=== PATIENT | female | born 1960 | race Caucasian/White ===

== ENCOUNTER 2020-01-25 07:54 | Outpatient (REF) | payer OTHER, SELFPAY ==
[2020-01-25 11:16] LABS: Alanine Aminotransferase 20 U/L (0-31); Albumin Level 4.8 g/dL (3.5-5.0); Alkaline Phosphatase 90 U/L (39-117); Anion Gap 12 (12-20); Aspartate Amino Transferase 17 U/L (5-31); Bilirubin Total 0.6 mg/dL (0.0-1.0); Blood Urea Nitrogen 15 mg/dL (9-16); Calcium 9.5 mg/dL (8.4-10.2); Carbon Dioxide 29 mmol/L (22-29); Chloride 103 mmol/L (96-108); Cholesterol 218 mg/dL; Estimated Glomerular Filt Rate > 60; Glucose Fasting 111 mg/dL (60-99); HDL Cholesterol 46 mg/dL; LDL Cholesterol Calculated 123 mg/dl; Potassium 4.4 mmol/l (3.3-5.1); Sodium 140 mmol/L (135-145); Total Protein 7.7 g/dL (6.5-8.0); Triglycerides 246 mg/dL
[2020-01-25 11:21] LABS: Creatinine Urine 38.57 mg/dL; Microalbumin Urine < 5.0 mg/L
[2020-01-25 11:40] LABS: TSH reflex Free T4 2.94 mIU/mL (0.32-4.0)
== END 2020-01-25 07:55 | disposition home or self-care (01) ==
LOC: HO.WFDLDS 07:54
PROVIDERS: PCP Family Medicine; Visit Provider Family Medicine
DX: Z00.00 Encounter for general adult medical examination without abnormal findings (principal); I10 Essential (primary) hypertension
CPT/HCPCS: 36415; 80053; 80061; 82043; 84443

== ENCOUNTER 2020-01-26 08:17 | Outpatient (REF) | payer OTHER, SELFPAY ==
--- NOTE | 2020-01-26 | XR_ITS ---
EXAMINATION: KNEE, BILATERAL CLINICAL INFORMATION: Bilateral knee pain COMPARISON: None TECHNIQUE: AP and lateral views of each knee FINDINGS: Mild tricompartmental osteoarthritis of both knees, right greater than left, with small marginal osteophytes. There may be slight narrowing of the medial compartment of the right knee. No joint effusions. No fracture or focal osseous lesion of either knee. IMPRESSION: Mild tricompartmental osteoarthritis bilaterally, right greater than left. No acute abnormalities.
== END 2020-01-26 08:18 | disposition home or self-care (01) ==
LOC: HO.XRAY 08:17
PROVIDERS: PCP Family Medicine; Visit Provider Family Medicine
DX: M25.562 Pain in left knee (principal); M25.561 Pain in right knee
CPT/HCPCS: 73560

== ENCOUNTER 2020-03-10 08:40 | Outpatient (REF) | payer OTHER, SELFPAY ==
--- NOTE | 2020-03-10 08:49 | XR_ITS ---
EXAMINATION: XR KNEE AP STANDING CLINICAL INFORMATION: Bilateral primary osteoarthritis of the knee. COMPARISON: Bilateral knee radiographs dated 01/26/2020. TECHNIQUE: AP bilateral standing view of the knees was obtained. FINDINGS: Mild to moderate femoral-tibial degenerative joint changes are seen with joint space narrowing more pronounced medially. There is no acute fracture. The soft tissues are unremarkable. XR/XR knee standing BI IMPRESSION: Mild to moderate femoral-tibial degenerative joint changes more pronounced medially most consistent with osteoarthritis. The degree of degenerative changes similar bilaterally.
== END 2020-03-10 08:41 | disposition home or self-care (01) ==
LOC: HO.HOSX 08:40
PROVIDERS: Visit Provider Orthopaedic Surgery
DX: M17.0 Bilateral primary osteoarthritis of knee (principal); M54.16 Radiculopathy, lumbar region
CPT/HCPCS: 20610; 73565; 99202; J1100

== ENCOUNTER 2020-04-25 10:24 | Outpatient (REF) | payer OTHER, SELFPAY ==
--- NOTE | 2020-04-25 10:29 | MM_ITS ---
EXAMINATION: BONE DENSITOMETRY CLINICAL INDICATION: Asymptomatic menopausal state. COMPARISON: None (current study represents initial baseline exam). TECHNIQUE: Using a [employer] DXA System (software version: 13.1) manufactured by [employer], dual-energy x-ray absorptiometry was performed of the lumbar spine and left hip. The images are of good technical quality. Summary results are attached. FINDINGS: AP SPINE L1-L4: BMD 1.201 g/cm2, Z-score 0.4, T-score 0.2, normal. LEFT FEMUR, NECK: BMD 1.037 g/cm2, Z-score 0.6, T-score 0.0, normal. LEFT FEMUR, TOTAL: BMD 1.054 g/cm2, Z-score 0.6, T-score 0.4, normal. IDENTIFIED RISK FACTORS: Menopause. HISTORY OF FRACTURE: None listed. MEDICATIONS: Calcium supplements or multivitamin, vitamin D. MM/XR DEXA axial skeleton IMPRESSION: 1. DIAGNOSIS: Normal bone density based on the lowest T-score value of 0.0 in the femoral neck applying World Health Organization criteria. 2. 10-YEAR FRACTURE RISK PREDICTION, FRAX: Major osteoporotic fracture (clinical spine, forearm, hip or shoulder) 5.7%. Hip fracture 0.1%. 3. Treatment Recommendations: NOF guidelines recommend consideration for treatment in postmenopausal women and men age 50 and older presenting with the following: -A hip or vertebral (clinical or morphometric) fracture. -T-score less than or equal to -2.5 at the femoral neck or spine after appropriate evaluation to exclude secondary causes. -Low bone mass at the hip or spine and a 10-year fracture probability by FRAX of greater than or equal to 3% for hip fracture or greater than or equal to 20% for major osteoporotic fracture based on the [place] adapted WHO algorithm. 4. Other Recommendations: All treatment decisions require clinical judgment and consideration of individual patient factors, including patient preferences, comorbidities, previous drug use, risk factors not captured in the FRAX model (e.g. frailty, falls, vitamin D deficiency, increased bone turnover, interval significant decline in bone density) and possible under or overestimation of fracture risk by FRAX. FUTURE SCAN RECOMMENDATION: People with diagnosed cases of osteoporosis or at high risk for fracture should have regular bone mineral density tests. For patients eligible for Medicare, routine testing is allowed once every 2 years. The testing frequency can be increased to one year for patients who have rapidly progressing disease, those who are receiving or discontinuing medical therapy to restore bone mass, or have additional risk factors.
== END 2020-04-25 10:25 | disposition home or self-care (01) ==
LOC: HO.MAMMO 10:24
PROVIDERS: PCP Family Medicine; Visit Provider Family Medicine
DX: Z13.820 Encounter for screening for osteoporosis (principal); Z78.0 Asymptomatic menopausal state
CPT/HCPCS: 77080

== ENCOUNTER → 2020-05-02 12:57 | Outpatient (BNVA) | payer OTHER, SELFPAY | PROVIDERS: PCP Family Medicine; Visit Provider Physician Assistant | DX: Z76.89 Persons encountering health services in other specified circumstances (principal) ==

== ENCOUNTER → 2020-05-26 08:17 | Outpatient (BNVA) | payer OTHER, SELFPAY | PROVIDERS: PCP Family Medicine; Visit Provider Physician Assistant | DX: E66.9 Obesity, unspecified (principal) | CPT/HCPCS: 99202 ==

== ENCOUNTER → 2020-06-16 13:21 | Outpatient (BNVA) | payer OTHER, SELFPAY | PROVIDERS: PCP Family Medicine; Visit Provider Physician Assistant | DX: E66.9 Obesity, unspecified (principal) | CPT/HCPCS: 99212 ==

== ENCOUNTER 2020-06-30 07:31 | Day surgery (SDC) | payer OTHER, SELFPAY ==
--- NOTE | 2020-06-29 12:07 | HO.ANESPROP2 ---
Documented by User: Chayo Marcos 06/29/20 12:10 HPI - Anesthesia Eval Consult details Narrative: 60yo F for Colonoscopy PMFSH Active Problems Active Problems: All Active Problems (Updated 06/16/20 @ 10:04 by Gilles Cruz MD) Pre-diabetes (Acute) Obesity (BMI 30-39.9) (Acute) Vertigo (Acute) Deanne rash of groin (Acute) Adult general medical exam (Acute) Postmenopausal (Acute) Screening for osteoporosis (Acute) Screening for colon cancer (Acute) Breast cancer screening by mammogram (Acute) Essential hypertension (Acute) Elevated fasting blood sugar (Acute) Hypertriglyceridemia (Acute) Lumbar radiculopathy (Acute) Tricompartment osteoarthritis of knees, bilateral (Acute) Past Medical History Medical History Elevated fasting blood sugar Essential hypertension Hypertension Hypertriglyceridemia Lumbar radiculopathy Obesity (BMI 30-39.9) Tricompartment osteoarthritis of knees, bilateral Vertigo Family History Family History Mother No problems noted. Father No problems noted. Sister No problems noted. Daughter No problems noted. Son No problems noted. 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 Allergies Allergy/AdvReac Type Severity Reaction Status Date / Time No Known Allergies Allergy Verified 06/16/20 13:41 Home Medications Medication Instructions Recorded Confirmed Last Taken Type losartan 25 mg tablet 25 mg PO DAILY 03/10/20 06/16/20 06/30/20 History 0500 Exam Exam Date and Time: June 29, 2020 1207 Pertinent Lab Results Pertinent Lab Results: Laboratory Tests 01/25/20 08:10 Sodium 140 Potassium 4.4 Chloride 103 Carbon Dioxide 29 BUN 15 Creatinine 0.76 Assessment and Plan Assessment Anesthesia Assessment: Chart Reviewed Documented by User: Michelle Hernandez 06/30/20 08:41 PMFSH Past Medical History Medical History Elevated fasting blood sugar Essential hypertension Hypertension Hypertriglyceridemia Lumbar radiculopathy Obesity (BMI 30-39.9) Tricompartment osteoarthritis of knees, bilateral Vertigo Family History Family History Mother No problems noted. Father No problems noted. Sister No problems noted. Daughter No problems noted. Son No problems noted. 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
[2020-06-30 08:00] VITALS: BMI 30.7
[2020-06-30 08:16] VITALS: BP 132/50; PULSE 88; RESP 16; TEMP 36.7; O2SAT 99
[2020-06-30] MEDS: Lactated Ringers 1,000 ML 100 ML IVCONT (08:19)
--- NOTE | 2020-06-30 08:29 | P.OP_ITS ---
Operative Note Operative Note Date of Service: 06/30/20 Narrative: Pre-op diagnosis: Colon cancer screening, intermittent rectal bleeding Post-op diagnosis: other (Colon polyp, diverticulosis, hemorrhoids) Procedure: COLONOSCOPY TO CECUM WITH BIOPSY Consent: Indications for the procedure and potential complications of bleeding, perforation, reaction to medications and missed diagnosis were discussed with the patient and informed consent was obtained. Instrument: Olympus PCF H 190 L variable stiffness pediatric colonoscope Monitoring: Vital signs and clinical assessment, intermittent blood pressure monitoring, continuous EKG monitoring, Pulse oximetry and Carbon Dioxide monitoring were done throughout the procedure. Colon withdrawl time was 18 minutes. Procedure: The patient was placed in the left lateral decubitis position and pre-procedure medications were administered. After a digital rectal examination of the ano-rectum, the video colonoscope was inserted into the rectum and advanced through the colon to the cecum. The colonoscope was slowly withdrawn in a retrograde panoramic fashion and the colon mucosa was carefully examined including a retroflexed view of the rectum. Findings and interventions are described below. Procedure Difficulty: Without difficulty Findings: Terminal Ileum: Not evaluated Cecum: Normal Ascending Colon: Moderate scattered diverticulosis Transverse Colon: Moderate scattered diverticulosis Descending Colon: Moderate diverticulosis Sigmoid Colon: Moderate diverticulosis Rectum: A few 2-3 mm diminutive appearing polyps - 1 removed by cold biopsy Ano-rectum: Moderate internal hemorrhoids and perianal skin tags Colon preparation: Excellent Impression and Post Procedure Diagnosis: Colonoscopy Findings: One tiny polyp removed Moderate diverticulosis seen in the entire colon Moderate hemorrhoids on retroflexed exam - likely source of rectal bleeding. Zina-anal skin tags Plan: Await pathology results Patient has an appointment on 07/18/30 in the GI Clinic with JAIME Snyder . Repeat Colonoscopy interval based on path results - in 5 years if polyps are adenomatous and 10 years if polyps are hyperplastic. Above findings were reviewed with the patient and colon polyps and diverticulosis handouts were given in the discharge area Surgeon: Peter Daniels MD Anesthesia: MAC (Juan Daniel Ross CRNA ) Label Machine Operator: [place] Santa Estimated blood loss (mL): 0 Pathology: other (A. Rectal polyp x 1) Condition: stable Disposition: PACU
--- NOTE | 2020-06-30 08:29 | MHC.SHP ---
Pre-Procedural Eval Section A The patient is an INPATIENT: No The History & Physical has been completed within 30 days and I have reviewed it.: No Section B Chief Complaint: screening Details of Present Illness: Colon cancer screening, hemorrhoids Relevant Family History (Specify if Yes): No Present Medications: see Short Stay Collaborative assessment Medical History: Significant History (HYPERTENSION) History of Previous Operations: Relevant previous surgery/procedure and date(s) (Previous section) Allergies: Allergies Allergy/AdvReac Type Severity Reaction Status Date / Time No Known Allergies Allergy Verified 06/16/20 13:41 Review of Systems Sugical H&P ROS: Negative: Constitution, Cardiovascular, Respiratory and Gastrointestinal Exam Surgical H&P Exam: Normal: Heart, Normal: Lungs, Normal: Extremities and Normal: Abdomen Plan Diagnosis/Plan: Unchanged I have reviewed the history and physical and performed a pertinent physical examination on my patient. No changes have occurred unless specified.
[2020-06-30 10:35] VITALS: BP 91/46; PULSE 88; RESP 16; TEMP 36.1; O2SAT 97
[2020-06-30 10:50] VITALS: BP 122/68; PULSE 76; RESP 18; O2SAT 98
== END 2020-06-30 12:01 | disposition home or self-care (01) ==
PROVIDERS: PCP Family Medicine; Visit Provider Internal Medicine Gastroenterology
PROC: 0DJD8ZZ Inspection of Lower Intestinal Tract, Via Natural or Artificial Opening Endoscopic (ICD-10-PCS; CPT 45378; principal; 2020-06-30 09:00)
DX: Z12.11 Encounter for screening for malignant neoplasm of colon (principal); K62.1 Rectal polyp; K57.30 Diverticulosis of large intestine without perforation or abscess without bleeding; K64.8 Other hemorrhoids; K64.4 Residual hemorrhoidal skin tags; I10 Essential (primary) hypertension; R73.03 Prediabetes; M17.0 Bilateral primary osteoarthritis of knee; Z79.899 Other long term (current) drug therapy
CPT/HCPCS: 45380; 88305

== ENCOUNTER → 2020-07-14 09:19 | Outpatient (BNVA) | payer OTHER, SELFPAY | PROVIDERS: PCP Family Medicine; Visit Provider Dietitian, Registered ==

== ENCOUNTER → 2020-08-01 15:41 | Outpatient (BNVA) | payer OTHER, SELFPAY | PROVIDERS: PCP Family Medicine; Visit Provider Physician Assistant ==

== ENCOUNTER → 2020-08-15 08:14 | Outpatient (BNVA) | payer OTHER, SELFPAY | PROVIDERS: PCP Family Medicine; Visit Provider Physician Assistant ==

== ENCOUNTER → 2020-09-13 08:20 | Outpatient (BNVA) | payer OTHER, SELFPAY | PROVIDERS: PCP Family Medicine; Visit Provider Dietitian, Registered | DX: E66.3 Overweight (principal); Z68.29 Body mass index [BMI] 29.0-29.9, adult | CPT/HCPCS: 97803 ==

== ENCOUNTER → 2020-11-28 08:08 | Outpatient (BNVA) | payer OTHER, SELFPAY | PROVIDERS: PCP Family Medicine; Visit Provider Physician Assistant ==

== ENCOUNTER → 2021-02-23 08:17 | Outpatient (BNVA) | payer OTHER, SELFPAY | PROVIDERS: PCP Family Medicine; Visit Provider Dietitian, Registered | DX: E66.3 Overweight (principal); Z68.27 Body mass index [BMI] 27.0-27.9, adult | CPT/HCPCS: 97803 ==

== ENCOUNTER 2021-02-27 15:17 | Outpatient (REF) | payer OTHER, SELFPAY ==
--- NOTE | ~2021-02-27 | MM_ITS ---
EXAMINATION: MM SCREENING DIGITAL BREAST TOMOSYNTHESIS, BILATERAL CLINICAL INFORMATION: Screening. Asymptomatic. The lifetime risk of breast cancer based on the Tyrer-Cuzick Model is 10.8%. COMPARISON: Mammography: None TECHNIQUE: Digital breast tomosynthesis is performed in both the craniocaudal and mediolateral oblique views along with computer-aided detection (CAD). Synthesized 2D images are generated from the tomosynthesis. FINDINGS: There are scattered areas of fibroglandular density (ACR BI-RADS breast composition Category b). No suspicious mass or grouping of calcifications within the right breast identified. About the anterior aspect of the left breast laterally there is a circumscribed 3 mm density for which spot compression view and ultrasound is recommended. MM/MM tomosynthesis screening BI IMPRESSION: Left breast density for further evaluation as described. ASSESSMENT: BI-RADS 0: Incomplete - Need Additional Imaging Evaluation RECOMMENDATION: 1. Additional views of the left breast. 2. Targeted ultrasound if warranted after review of the additional views. 3. Radiology department staff will contact the patient for additional imaging.
== END 2021-02-27 15:18 | disposition home or self-care (01) ==
LOC: HO.MAMMO 15:17
PROVIDERS: Visit Provider Family Medicine
DX: Z12.31 Encounter for screening mammogram for malignant neoplasm of breast (principal)
CPT/HCPCS: 77063; 77067

== ENCOUNTER 2021-05-01 14:18 | Outpatient (REF) | payer OTHER, SELFPAY ==
--- NOTE | ~2021-05-01 | MM_ITS ---
EXAMINATION: MM DIAGNOSTIC DIGITAL BREAST TOMOSYNTHESIS, LEFT US DIAGNOSTIC ULTRASOUND BREAST, LEFT CLINICAL INFORMATION: Recall from new baseline screening for tiny focal nodular asymmetry anterior left breast. COMPARISON: Mammography: 02/27/2021 (new baseline). TECHNIQUE: Digital breast tomosynthesis is performed. 2D images are generated from the tomosynthesis. The following views are obtained: Spot CC, spot ML. Ultrasound left breast is targeted to the periareolar outer breast. Grayscale imaging and color Doppler are performed without and with harmonics. FINDINGS: The breasts are almost entirely fatty (ACR BI-RADS breast composition Category a). Additional views confirm a tiny circumscribed nodule 3:00 periareolar region approximately 3 mm in size. Ultrasound demonstrates a circumscribed isoechoic nodule 3:00 subareolar region, just under 4 mm. No associated color flow. No increased or decreased through transmission of sound. Results are discussed with the patient at time of visit. Finding is of doubtful significance. Chronicity is unknown. Short interval left diagnostic mammography will be requested to confirm stability. MM/MM tomosynthesis added views L IMPRESSION: Tiny circumscribed isoechoic nodule 3:00 subareolar left breast. Unknown chronicity. ASSESSMENT: BI-RADS 3: Probably Benign RECOMMENDATION: Diagnostic left mammography in 6 months. This patient's information was entered into a reminder system with a target due date for their next mammogram.
== END 2021-05-01 14:19 | disposition home or self-care (01) ==
LOC: HO.MAMMO 14:18
PROVIDERS: Visit Provider Family Medicine
DX: R92.2 Inconclusive mammogram (principal)
CPT/HCPCS: 76642; 77061; 77065

== ENCOUNTER 2021-05-11 09:14 | Outpatient (REF) | payer OTHER, SELFPAY ==
[2021-05-11 11:12] LABS: Creatinine Urine 130.73 mg/dL; Microalbum/Creatinine Ratio Ur 8.4 ug/mg cr
[2021-05-11 11:16] LABS: Estimated Average Glucose 111 mg/dL; Hemoglobin A1c % 5.5 %
[2021-05-11 11:17] LABS: Cholesterol 187 mg/dL; HDL Cholesterol 49 mg/dL; LDL Cholesterol Calculated 121 mg/dl; Triglycerides 86 mg/dL
== END 2021-05-11 09:15 | disposition home or self-care (01) ==
LOC: HO.WFDLDS 09:14
PROVIDERS: Visit Provider Family Medicine
DX: Z00.00 Encounter for general adult medical examination without abnormal findings (principal); I10 Essential (primary) hypertension; R73.01 Impaired fasting glucose
CPT/HCPCS: 36415; 80061; 82043; 83036

== ENCOUNTER 2021-06-26 15:15 | Outpatient (REF) | payer OTHER, SELFPAY ==
--- NOTE | 2021-06-26 16:53 | MHC.AU.AEV ---
Adult Audiological Evaluation Date of Visit: 06/26/21 Reason for Appointment: Ms. Hung was seen for a hearing evaluation due to concerns of unilateral tinnitus. Ms. Hung reports a high pitched, intermittent ringing in her right ear that is more prevalent when she is in quiet environments. She reports noticing an increase in the tinnitus around September of 2020 following her first Covid-19 vaccination. She reports being sensitive to high pitched sounds. Ms. 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 She reports experiencing a sudden vertigo attack about three years ago after turning over in bed. Ms. Hung reports the vertigo resolved following physical therapy and has only returned one time since the original incident. Does patient feel they have a hearing loss?: No If Yes, Which Ear?: None Reported Has hearing been tested previously?: No Hearing Handicap Inventory HHIE SCORE: 4 Based on HHIE score, patient has: No perceived hearing handicap Ear History: Ear Infections in Childhood: Both Ears Bothersome Tinnitus/Ringing/Noises in Ears: Right ear, high pitched, intermittent tinnitus Ear used on the phone: Left Ear History of occupational noise exposure?: Yes: Hardware store-[employer] machines and radio Medical History: Medical History: Dizziness or Unsteadiness, High Blood Pressure, Tobacco Use Medical History: Dizziness/vertigo managed with physical therapy when an episode occurs. Tobacco use was only as a teenager. Surgical history of a in 1995. Allergies: NKA Medication List: Losartan, glucosamine, multivitamin Otoscopy: Right Ear: Unremarkable Left Ear: Unremarkable Tympanometry: Tympanometry performed due to: To assess integrity of the middle ear system Right Ear: Normal Middle Ear System (Type A) Left Ear: Normal Middle Ear System (Type A) Otoacoustic Emissions Frequency Range Used: 1.6-8 kHz Right Ear Results: Reduced 4.5-5.0kHz, 6.3kHz. Absent 5.6kHz, 7.1-8.0kHz. Analysis:Present emissions suggest normal function in those regions of the cochlea. Reduced/Absent emissions suggest dysfunction in those regions of the cochlea. Left Ear Results: Reduced 4.0-4.5kHz, 5.6-6.3kHz. Absent 5.0kHz, 7.1-8.0kHz. Analysis: Present emissions suggest normal function in those regions of the cochlea. Reduced/Absent emissions suggest dysfunction in those regions of the cochlea. Hearing Evaluation: Transducer(s) Used: Insert Earphones Method: Conventional Audiometry Stimuli Used: Pure Tones Right Ear: Description of Hearing: Normal hearing thresholds from 250-8000 Hz. Left Ear: Description of Hearing: Normal hearing thresholds from 250-8000 Hz. Speech Recognition Threshold (SRT): Method Used: Monitored Live Voice Stimuli Used: Spondee Words Right Ear: 10 dB HL Left Ear: 10 dB HL Word Discrimination: Method: Recorded Lists Word Lists Used: NU-6 Right Ear: 96% at 50 dB HL Left Ear: 96% at 50 dB HL Interpretation of Results: Normal hearing thresholds to tones and speech bilaterally. Normal middle ear function. Reduced inner ear function as measured by OAEs. Recommendations: Audiological re-evaluation if changes are noted. Discussed exacerbating factors of tinnitus such as stress and diet. Counseled on the importance of protecting hearing from loud noise. Patient should return if changes in hearing are noted. Diagnosis: Primary Diagnosis: H93.11 Tinnitus, Right Ear Services Performed: Pure Tone- Air (CPT 42177) Speech Audiometry Threshold, with Speech Recognition (CPT 27589) Diagnostic Otoacoustic Emissions (CPT 52680, 26+TC) Tympanometry (CPT 06066) Signature: Student/Clinical Fellow: Yes: Tosha Bradley B.A., Rogelio Crime Lab Analyst I have reviewed/agreed with student/fellow documentation: Yes Provider: Rogelio Whitaker, [facility]
== END 2021-06-26 15:16 | disposition home or self-care (01) ==
LOC: HO.SH 15:15
PROVIDERS: Visit Provider Family Medicine
DX: Z01.118 Encounter for examination of ears and hearing with other abnormal findings (principal); H93.11 Tinnitus, right ear
CPT/HCPCS: 92552; 92556; 92567; 92588

== ENCOUNTER 2021-10-30 14:17 | Outpatient (REF) | payer OTHER, SELFPAY ==
--- NOTE | ~2021-10-30 | MM_ITS ---
EXAMINATION: MM DIAGNOSTIC DIGITAL BREAST TOMOSYNTHESIS, LEFT CLINICAL INFORMATION: Follow-up probable benign tiny circumscribed nodule anterior upper outer left breast initially noted at new baseline 02/27/2021. The lifetime risk of breast cancer based on the Tyrer-Cuzick Model is 11%. COMPARISON: Mammography: 05/01/2021, 02/27/2021 (new baseline); targeted ultrasound left breast 05/01/2021. TECHNIQUE: Digital breast tomosynthesis is performed in both the craniocaudal and mediolateral oblique views along with computer-aided detection (CAD). Synthesized 2D images are generated from the tomosynthesis. FINDINGS: There are scattered areas of fibroglandular density (ACR BI-RADS breast composition Category b). The small benign-appearing smooth circumscribed nodule is stable. The remainder of the breast is unremarkable. There are no abnormal calcifications. The axilla is unremarkable. Results are provided to the patient at time of visit by the technologist. MM/MM tomosynthesis diagnostic LT IMPRESSION: No significant change in benign-appearing smooth small circumscribed nodule. ASSESSMENT: BI-RADS 3: Probably Benign RECOMMENDATION: Diagnostic mammography at time of annual bilateral exam, due in 6 months. This patient's information was entered into a reminder system with a target due date for their next mammogram.
== END 2021-10-30 14:18 | disposition home or self-care (01) ==
LOC: HO.MAMMO 14:17
PROVIDERS: PCP Family Medicine; Visit Provider Family Medicine
DX: N63.21 Unspecified lump in the left breast, upper outer quadrant (principal)
CPT/HCPCS: 77061; 77065

== ENCOUNTER 2022-02-01 10:30 | Outpatient (REF) | payer OTHER, SELFPAY ==
[2022-02-06 15:48] LABS: HPV mRNA E6/E7 rflx Not Detected (Not Detected)
== END 2022-02-01 10:31 | disposition home or self-care (01) ==
LOC: HO.LNP 10:30
PROVIDERS: Visit Provider Advanced Practice Midwife
DX: Z12.4 Encounter for screening for malignant neoplasm of cervix (principal)
CPT/HCPCS: 87624; 88142

== ENCOUNTER 2022-05-10 14:16 | Outpatient (REF) | payer OTHER, SELFPAY ==
--- NOTE | ~2022-05-10 | MM_ITS ---
EXAMINATION: MM DIAGNOSTIC DIGITAL BREAST TOMOSYNTHESIS, BILATERAL CLINICAL INFORMATION: Left breast nodule follow-up. Screening right breast study. The lifetime risk of breast cancer based on the Tyrer-Cuzick Model is 10.4%. COMPARISON: Mammography: 10/30/2021 and studies dating back to 02/27/2021. TECHNIQUE: Digital breast tomosynthesis is performed in both the craniocaudal and mediolateral oblique views along with computer-aided detection (CAD). Synthesized 2D images are generated from the tomosynthesis. FINDINGS: The breasts are almost entirely fatty (ACR BI-RADS breast composition Category a). There is a stable parenchymal pattern of the right breast with no new abnormal dominant mass or suspicious grouping of microcalcifications. About the anterior aspect of the left breast there is again noted to be a well-circumscribed 3 mm density which is stable. No new abnormal dominant mass or suspicious grouping of microcalcifications. Recommend 12 month diagnostic study to ensure stability of the left breast density. Results are provided to the patient at time of visit by the technologist. MM/MM tomosynthesis diagnostic BI IMPRESSION: There are no significant changes from prior study. ASSESSMENT: BI-RADS 3: Probably Benign RECOMMENDATION: Diagnostic mammography at time of next annual exam, due in 12 months. This patient's information was entered into a reminder system with a target due date for their next mammogram.
== END 2022-05-10 14:17 | disposition home or self-care (01) ==
LOC: HO.MAMMO 14:16
PROVIDERS: Visit Provider Family Medicine
DX: N63.20 Unspecified lump in the left breast, unspecified quadrant (principal)
CPT/HCPCS: 77062; 77066

== ENCOUNTER 2023-02-07 09:22 | Outpatient (AMB) | payer OTHER, SELFPAY ==
--- NOTE | 2023-02-07 09:24 | MHC.OFFVIS ---
Intake Vital Signs 02/07/23 09:25 Height 5 ft 7 in Weight 184 lb BMI 28.8 BP 122/80 Intake Visit Reasons: [employer] annual exam/do not RS Intake Note: No concerns The patient agreed to use of a medical field representative during this encounter. Scribed for HUMZA Glover by Jemima Lucio medical field representative, on 02/07/2023 at 9:39 am EST. Bowling Ball Molder Required: No Information Interpreted: non-clinical & clinical Paraffiner: Paraffiner Present (Sheila Rader RAMAN) Accompanied by: Self / Same As Patient Allergies No Known Allergies Allergy (Verified 02/07/23 09:29) Post menopausal: Yes HPI HPI Comments History of Present Illness Details She is a postmenopausal woman presenting for annual exam. Patient admits she tries to eat a healthy diet including Calcium and Vitamin D. She stays active with exercise. Currently not sexually active. Denies vaginal itching and irritation. Denies family hx of breast, colon and ovarian cancer. Last pap smear 02/05/22. Last mammogram 05/10/22 UTD on colonoscopy. [facility] Medical History Overweight (BMI 25.0-29.9) Obesity (BMI 30-39.9) Vertigo Essential hypertension Elevated fasting blood sugar Hypertriglyceridemia Lumbar radiculopathy Hypertension Tricompartment osteoarthritis of knees, bilateral Surgical History Previous section Family History Mother No problems noted. Father No problems noted. Sister No problems noted. Daughter No problems noted. Son No problems noted. 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 Sexual orientation: Straight/Heterosexual Gender identity: Female Cognitive needs: No Hearing needs: No Vision needs: No Female Reproductive History Menstrual Age of Menarche: 14 Date of last pap smear: 02/05/22 Date of Mammogram: 05/10/22 Date of last Bone Density Screenin05/15/20 Physical Exam Vital Signs: Last Vital Signs BP 122/80 02/07/23 09:25 BMI result Body Mass Index 28.8 Const General: cooperative, healthy appearing, no acute distress, well developed and alert Orientation/consciousness: patient oriented x3 HEENT Head: Yes normal to inspection Eyes General: appearance normal, both eyes and all related structures Neck Neck: Yes normal visual inspection Thyroid: Thyroid normal Chest Chest palpation & inspection: normal inspection of the chest Breast/axilla inspection: normal inspection of the breasts (no puckering, dimpling, peau de orange, retraction, discharge, masses) Breast/axilla palpation: normal palpation of the breasts Resp Effort & Inspection: normal respiratory effort GI Other: c/s scarring Inspection: Yes normal to inspection Palpation (GI): Soft to palpation (to palpation) Rectal Exam - Female: deferred General: Yes bladder normal to inspection External Female Exam: normal external appearance and normal appearance of the urethra Speculum Exam - Vagina: normal appearance of the vagina, normal palpation and vagina atrophic Speculum Exam - Cervix: normal appearance of the cervix and normal palpation Bimanual exam- vagina & uterus: normal palpation and normal palpation Bimanual Exam- Adnexa, other: normal adnexae and no masses Skin General skin exam: no rashes or lesions noted Neuro General: patient oriented x3 Cognition (Neuro): normal cognition Extrem General: Yes normal to inspection Psych Attitude: cooperative Thought process: Normal thought process present Assessment & Plan Assessment & Plan (1) Encounter for well woman exam: Code(s): Z01.419 - Encounter for gynecological examination (general) (routine) without abnormal findings Plan: Discussed: Current recommendations for pap smears per ASCCP guidelines. Breast awareness and periodic self breast exams. Encouraged yearly mammograms. Maintaining a healthy lifestyle including a well balanced diet including Calcium and Vitamin D and routine exercise. Encouraged patient to sign up for patient portal. Contact office with any PMB. All of her questions and concerns were addressed to the best of my ability. RTO in 1 year for AG. Coding Level of Care Code Est Pt Prev Care 40-64y(75030) Diagnoses Encounter for well woman exam Z01.419
[2023-02-07 09:25] VITALS: BP 122/80; BMI 28.8
== END 2023-02-07 09:51 | disposition home or self-care (01) ==
PROVIDERS: PCP Family Medicine; Visit Provider Advanced Practice Midwife
DX: Z01.419 Encounter for gynecological examination (general) (routine) without abnormal findings (principal)
CPT/HCPCS: 99396

== ENCOUNTER → 2023-02-07 09:22 | Outpatient (BNVA) | payer OTHER, SELFPAY | PROVIDERS: Visit Provider Advanced Practice Midwife | DX: Z01.419 Encounter for gynecological examination (general) (routine) without abnormal findings (principal); Z78.0 Asymptomatic menopausal state | CPT/HCPCS: 99396 ==

== ENCOUNTER 2023-03-07 09:18 | Outpatient (AMB) | payer OTHER, SELFPAY ==
[2023-03-07 09:19] VITALS: BP 126/82; PULSE 74; O2SAT 100; BMI 29.0
--- NOTE | 2023-03-07 09:19 | MHC.PC.OV ---
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 Cruz, last visit 02/2022. Medical history significant for hypertension-not on treatment, pre diabetes, overweight, hypertriglyceridemia-not on treatment, bilateral shoulder pain, vertigo, cervical radiculopathy. Patient reports normal blood pressures at home. Patient reports bilateral hands and fingers pain, bilateral shoulder pain, and neck pain left-sided for long time now-reports using [id number] patches for pain-does not like to take medications-interested in PT referral. 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 She also reports epigastric discomfort for the past some time. No acid reflux. She also reports intermittent vertigo on left side with changing position-interested in physical therapy referral-does not want meclizine. No shortness of breath or chest pain. [facility] Medical History Overweight (BMI 25.0-29.9) Obesity (BMI 30-39.9) Vertigo Essential hypertension Elevated fasting blood sugar Hypertriglyceridemia Lumbar radiculopathy Hypertension Tricompartment osteoarthritis of knees, bilateral Surgical History Previous section Family History Mother No problems noted. Father No problems noted. Sister No problems noted. Daughter No problems noted. Son No problems noted. 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 1. Little interest or pleasure in doing things: not at all 2. Feeling down, depressed, or hopeless: not at all 3. Trouble falling or staying asleep, or sleeping too much: not at all 4. Feeling tired or having little energy: not at all 5. Poor appetite or overeating: not at all 6. Feeling bad about yourself - or that you are a failure or have let yourself or your family down: not at all 7. Trouble concentrating on things, such as reading the newspaper or watching television: not at all 8. Moving or speaking so slowly that other people could have noticed. Or the opposite - being so fidgety or restless that you have been moving around a lot more than usual: not at all 9. Thoughts that you would be better off or of hurting yourself in some way: not at all Total score: 0 Depression Screening Interpretation: Negative Depression Screening Done: Yes 89775 - PHQ-9 Billing: Yes Source: Developed by Drs. Ahsan Bazzi, Megan Hardwick, Sam Silva and colleagues, with an educational prieto from [employer]. Thrive Questionnaire Date Thrive assessed: 03/07/23 I am a: Patient What is your living situation today?: I have a steady place to live Within the past 12 months, did the food you bought not last and you didn't have the money to get more?: Never true Within the past 12 months, did you worry whether your food would run out before you got money to buy more?: Never true Do you have trouble paying for medicines?: No Do you have trouble getting transportation to medical appointments?: No Do you have trouble paying your heating and electricity bill?: No Do you have trouble taking care of your child, family member or friend?: No Do you have trouble with day-to-day activities such as bathing, preparing meals, shopping, managing finances, etc.?: No Are you currently unemployed and looking for a job?: No Are you interested in more education?: No Currently or been in a relationship where the following occur: no concerns reported AUDIT C Alcohol Use Questionnaire (AUDIT-C) 1. How often do you have a drink containing alcohol?: Never 3. How often do you have six or more drinks on one occasion?: Never Total Score: 0 Score Reviewed/Action Taken: No UTE-7 AMB Questionnaire UTE-7 Date UTE - 7 assessed: 03/07/23 Feeling nervous, anxious, or on edge: 0 = Not at all Not being able to stop or control worryin = Not at all Worrying too much about different things: 0 = Not at all Trouble relaxin = Not at all Being so restless that it is hard to sit still: 0 = Not at all Becoming easily annoyed or irritable: 0 = Not at all Feeling afraid as if something awful might happen: 0 = Not at all Total UTE-7 score (0-4 normal; 5-9 mild; 10-14 moderate; 15-21 severe): 0 Source: Developed by Drs. Ahsan Bazzi, Megan Hardwick, Sam Silva and colleagues, with an educational prieto from [employer]. UTE-7 Assessment Billing UTE-7 Assessment Tool: UTE-7 Assessment 08637 Review of Systems Const Denies body aches, Denies chills, Denies fever(s) and Denies headache(s) ENT Reports as per HPI, Denies dizziness, Denies otalgia, Denies headache(s), Denies nasal discharge, Denies sinus pain and Denies sore throat Card Denies chest pain, Denies edema, Denies lightheadedness and Denies dyspnea Resp Denies cough, Denies dyspnea and Denies wheezing GI Reports abdominal pain, Denies constipation, Denies diarrhea, Denies nausea and Denies vomiting Denies dysuria Musc Reports as per HPI, Reports back pain, Denies myalgias and Reports arthralgias Skin/Breast Denies rash Neuro Denies dizziness and Denies headache(s) Aller/Immun Denies wheezing Physical exam (Primary Care) Vital Signs: Last Vital Signs Pulse 74 03/07/23 09:19 BP 126/82 03/07/23 09:19 Pulse Ox 100 03/07/23 09:19 Oxygen Delivery Method Room Air 03/07/23 09:19 BMI result Body Mass Index 29.0 Tobacco/Smoking Status: Tobacco use Status Tobacco use date assessed 03/07/23 03/07/23 09:22 Patient Tobacco Use Status Never used Tobacco 03/07/23 09:22 e-Cigarette/Vaping Use Never Used 03/07/23 09:22 PHQ-9: PHQ-9 Score PHQ-9: Total score 0 03/07/23 09:28 Depression Screening Interpretation: Negative Thrive Assessment: Date of Thrive Assessment Date Thrive assessed 03/07/23 03/07/23 09:28 Currently or been in a relationship where the following occur: no concerns reported Const General: cooperative and no acute distress Orientation/consciousness: patient oriented x3 HENMT Head: Yes normocephalic and Yes atraumatic Ears: TM's normal bilaterally Face and sinus: Yes sinuses nontender Mouth: oropharynx normal and moist mucous membranes Throat: Yes posterior oropharynx normal Eyes General: appearance normal, both eyes and all related structures Pupils: Equal, round and reactive pupils present EOM: EOMs intact bilaterally Neck Neck: Yes normal visual inspection, Yes full ROM and Yes no lymphadenopathy Thyroid: Thyroid normal Resp Effort & Inspection: normal respiratory effort and able to speak in complete sentences Auscultation: clear to auscultation bilaterally, no crackles, no rales, no rhonchi and no wheezes Cardio Rate: regular rate Rhythm: regular rhythm Heart sounds: S1 normal heart sound present, S2 normal heart sound present and no murmurs GI Palpation (GI): Soft to palpation, not firm, Tenderness to palpation present (GI) in the epigastrum; with no rebound tenderness, no guarding, not rigid and no hepatosplenomegaly Auscultation: normal bowel sounds General: No CVA tenderness Back/Spine/Pelvis Back: No CVA tenderness Cervical Spine: cervical ROM normal, No cervical muscular tenderness and No Cervical spine tenderness Skin General skin exam: no rashes or lesions noted Neuro General: patient oriented x3 Cranial nerves: Yes Equal, round and reactive pupils present Gait exam (Neuro): Normal gait present Motor exam (neuro): 5/5 motor strength present throughout Extrem Other: Bilateral shoulder nontender, mild pain with range of motion General: Yes full ROM and No edema Assessment and Plan Assessment & Plan (1) Pain in both hands: Code(s): M79.641 - Pain in right hand; M79.642 - Pain in left hand Plan: OT referral (2) GERD (gastroesophageal reflux disease): Code(s): K21.9 - Gastro-esophageal reflux disease without esophagitis Plan: Suspect gastritis Start omeprazole 20 mg daily Avoid acidic foods (3) Cervical radiculopathy: Code(s): M54.12 - Radiculopathy, cervical region Plan: PT referral Suspect musculoskeletal in origin Patient does not want any medications for pain (4) Vertigo: Code(s): R42 - Dizziness and giddiness Plan: PT referral Declined meclizine (5) Bilateral shoulder pain: Code(s): M25.511 - Pain in right shoulder; M25.512 - Pain in left shoulder Plan: PT referral (6) Hypertriglyceridemia: Code(s): E78.1 - Pure hyperglyceridemia Plan: Lipid panel ordered Low-cholesterol diet (7) Overweight (BMI 25.0-29.9): Code(s): E66.3 - Overweight Plan: Healthy food choices and exercise as tolerated (8) Essential hypertension: Code(s): I10 - Essential (primary) hypertension Plan: Goal BP equal or less than 140/90 Patient was on losartan in the past, she stop taking medication about 6 months ago Blood work normal in the office She also reports normal blood pressures at home Low-sodium diet (9) Pre-diabetes: Code(s): R73.03 - Prediabetes Plan: A1c ordered Plan Follow-up in the office in 3 months for PE Orders: Orders Lipid Panel Today E78.1 - Pure hyperglyceridemia Comprehensive [facility]. Panel Fast Today I10 - Essential (primary) hypertension Hemoglobin A1c Today R73.03 - Prediabetes PT Evaluation and Treatment Today R42 - Dizziness and giddiness TSH reflex Free T4 Today R73.03 - Prediabetes Complete Blood Count no Diff Today I10 - Essential (primary) hypertension OT Evaluation and Treatment Today M79.641 - Pain in right hand, M79.642 - Pain in left hand PT Evaluation and Treatment Today M25.511 - Pain in right shoulder, M25.512 - Pain in left shoulder, M54.12 - Radiculopathy, cervical region Medications: New omeprazole 20 mg PO DAILY 30 caps 0RF K21.9 - Gastro-esophageal reflux disease without esophagitis Coding Level of Care Code Est Pt Level 4 (30045) Diagnoses Pain in both hands M79.641; M79.642 GERD (gastroesophageal reflux disease) K21.9 Cervical radiculopathy M54.12 Vertigo R42 Bilateral shoulder pain M25.511; M25.512 Hypertriglyceridemia E78.1 Overweight (BMI 25.0-29.9) E66.3 Essential hypertension I10 Pre-diabetes R73.03 Additional Codes UTE-7 Assessment Billing - UTE-7 Assessment Tool: UTE-7 Assessment 02557 ([id number])
== END 2023-03-07 09:58 | disposition home or self-care (01) ==
PROVIDERS: PCP Family Medicine; Visit Provider Nurse Practitioner Family
DX: M79.641 Pain in right hand (principal); M79.642 Pain in left hand; K21.9 Gastro-esophageal reflux disease without esophagitis; M54.12 Radiculopathy, cervical region; R42 Dizziness and giddiness; M25.511 Pain in right shoulder; M25.512 Pain in left shoulder; E78.1 Pure hyperglyceridemia; E66.3 Overweight; I10 Essential (primary) hypertension; R73.03 Prediabetes
CPT/HCPCS: 99214

== ENCOUNTER 2023-08-22 08:28 | Outpatient (REF) | payer OTHER, SELFPAY ==
--- NOTE | ~2023-08-22 | MM_ITS ---
EXAMINATION: MM DIAGNOSTIC DIGITAL BREAST TOMOSYNTHESIS, BILATERAL CLINICAL INFORMATION: Left breast 3 mm anterior nodule follow-up. Screening right breast study. COMPARISON: Mammography: 05/10/2022, 10/30/2021, 05/01/2021, 02/27/2021 (BI-RADS 0); targeted ultrasound left breast 05/01/2021. TECHNIQUE: Digital breast tomosynthesis is performed in both the craniocaudal and mediolateral oblique views along with computer-aided detection (CAD). Synthesized 2D images are generated from the tomosynthesis. Added left CC full-field 3-D view was performed for anterior compression. Full-field 3-D left mediolateral view was also included. FINDINGS: There are scattered areas of fibroglandular density (ACR BI-RADS breast composition Category b). The small benign-appearing smooth circumscribed 3 mm nodule in the anterior most left breast is no longer seen and appears to have resolved. There are no suspicious masses, suspicious grouped calcifications, or areas of architectural distortion in either breast. The parenchymal pattern is stable from prior exams. No skin or axillary abnormalities. MM/MM tomosynthesis diagnostic BI IMPRESSION: -There are no findings suspicious for malignancy in either breast. -The tiny 3 mm nodule in the anterior left breast upper slightly outer quadrant is no longer seen and appears to have resolved. -Recommend this patient resume routine annual screening mammography. ASSESSMENT: BI-RADS BI-RADS 1 - Negative RECOMMENDATION: 1 year F/U Results were provided to the patient at time of visit by the technologist. This patient's information was entered into a reminder system with a target due date for their next mammogram.
== END 2023-08-22 08:29 | disposition home or self-care (01) ==
LOC: HO.MAMMO 08:28
PROVIDERS: Visit Provider Family Medicine
DX: Z09 Encounter for follow-up examination after completed treatment for conditions other than malignant neoplasm (principal)
CPT/HCPCS: 77062; 77066

== ENCOUNTER → 2023-08-22 08:33 | Outpatient (BNV) | payer OTHER, SELFPAY | PROVIDERS: Visit Provider Radiology Diagnostic Radiology | DX: N63.20 Unspecified lump in the left breast, unspecified quadrant (principal) | CPT/HCPCS: 77062; 77066 ==

== ENCOUNTER 2023-08-29 10:46 | Outpatient (AMB) | payer OTHER, SELFPAY ==
--- NOTE | 2023-08-29 10:59 | A.OFFPC_ITS ---
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 Note: New patient visit Pharmacy Delivery Driver Required: No Allergies camphor [From [facility]] Allergy (Severe, Verified 08/29/23 11:58) Rash menthol [From [facility]] Allergy (Severe, Verified 08/29/23 11:58) Rash methyl salicylate [From [facility]] Allergy (Severe, Verified 08/29/23 11:58) Rash Medication List - Last Reconciled 08/29/23 by VALENTINA Augustin- No Known Home Meds Tobacco use date assessed: 08/29/23 Dental Screening Dental Screen Date: 08/29/23 Did you have a dental visit in the last 12 months?: No Did you have a dental problem in the last 6 months where you did not have access to dental care?: No Was dental information given to patient?: Patient has dentist HPI HPI Comments History of Present Illness Details 63-year-old female hypertension, GERD, c ervical radiculopathy, obesity, impaired fasting glucose, hyperlipidemia, diverticulosis, osteoarthritis, poly arthralgia s/p c section Specialists Bariatric surgery GI 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 States WNL. will try to get this record. Declined Tdap today. Here today to est care for CPE has multiple joint aches and pains - wonders what she can take otc fungal rash in her groin wants PT to help w. neck pain PFSH Medical History Overweight (BMI 25.0-29.9) Obesity (BMI 30-39.9) Vertigo Essential hypertension Elevated fasting blood sugar Hypertriglyceridemia Lumbar radiculopathy Hypertension Tricompartment osteoarthritis of knees, bilateral Surgical History Previous section Family History Mother No problems noted. Father No problems noted. Sister No problems noted. Daughter No problems noted. Son No problems noted. 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 1. Little interest or pleasure in doing things: several days 2. Feeling down, depressed, or hopeless: several days 3. Trouble falling or staying asleep, or sleeping too much: not at all 4. Feeling tired or having little energy: more than half the days 5. Poor appetite or overeating: not at all 6. Feeling bad about yourself - or that you are a failure or have let yourself or your family down: several days 7. Trouble concentrating on things, such as reading the newspaper or watching television: not at all 8. Moving or speaking so slowly that other people could have noticed. Or the opposite - being so fidgety or restless that you have been moving around a lot more than usual: not at all 9. Thoughts that you would be better off or of hurting yourself in some way: not at all Total score: 5 Depression Screening Interpretation: Negative Depression Screening Done: Yes 59446 - PHQ-9 Billing: Yes Source: Developed by Drs. Ahsan Bazzi, Megan Hardwick, Sam Silva and colleagues, with an educational prieto from [employer]. Thrive Questionnaire Date Thrive assessed: 08/29/23 I am a: Patient What is your living situation today?: I have a steady place to live Within the past 12 months, did the food you bought not last and you didn't have the money to get more?: Never true Within the past 12 months, did you worry whether your food would run out before you got money to buy more?: Never true Do you have trouble paying for medicines?: No Do you have trouble getting transportation to medical appointments?: No Do you have trouble paying your heating and electricity bill?: No Do you have trouble taking care of your child, family member or friend?: No Do you have trouble with day-to-day activities such as bathing, preparing meals, shopping, managing finances, etc.?: No Are you currently unemployed and looking for a job?: No Are you interested in more education?: No Please select the resources that you would like help with: None Currently or been in a relationship where the following occur: no concerns re ported THRIVE Score: 0 AUDIT C Alcohol Use Questionnaire (AUDIT-C) 1. How often do you have a drink containing alcohol?: Never 3. How often do you have six or more drinks on one occasion?: Never Total Score: 0 Score Reviewed/Action Taken: Yes UTE-7 AMB Questionnaire UTE-7 Date UTE - 7 assessed: 03/07/23 Feeling nervous, anxious, or on edge: 1 = Several days Not being able to stop or control worryin = Not at all Worrying too much about different things: 0 = Not at all Trouble relaxin = Several days Being so restless that it is hard to sit still: 0 = Not at all Becoming easily annoyed or irritable: 0 = Not at all Feeling afraid as if something awful might happen: 0 = Not at all Total UTE-7 score (0-4 normal; 5-9 mild; 10-14 moderate; 15-21 severe): 2 Source: Developed by Drs. Ahsan Bazzi, Megan Hardwick, Sam Silva and colleagues, with an educational prieto from [employer]. UTE-7 Assessment Billing UTE-7 Assessment Tool: UTE-7 Assessment 43091 Review of Systems Const Details: Constitutional: Denies fever. Skin: Denies rash. Eye: Denies eye pain. ENMT: Denies sore throat and nasal congestion. Respiratory: Denies shortness of breath and cough. Gastrointestinal: Denies nausea, vomiting or abdominal pain. Cardiovascular: Denies chest pain and syncope. Genitourinary: Denies dysuria. Neurologic: Denies headaches, confusion, and weakness. Psychiatric: Denies suicidal thoughts and substance abuse. Allergy/ Immunologic: Denies impaired immunity. Physical exam (Primary Care) Vital Signs: Last Vital Signs Temp 98.3 F 08/29/23 11:06 Pulse 83 08/29/23 11:06 Resp 14 08/29/23 11:06 BP 122/88 08/29/23 11:06 Pulse Ox 99 08/29/23 11:06 Oxygen Delivery Method Room Air 08/29/23 11:06 BMI result Body Mass Index 30.8 BMI Assessment/Plan discussion: High BMI High, discussed plan: lifestyle Tobacco/Smoking Status: Tobacco use Status Tobacco use date assessed 08/29/23 08/29/23 11:06 Patient Tobacco Use Status Former Tobacco user 08/29/23 11:06 e-Cigarette/Vaping Use Never Used 08/29/23 11:06 Depression Screening Interpretation: Negative Thrive Assessment: Date of Thrive Assessment Date Thrive assessed 03/07/23 08/29/23 11:06 Currently or been in a relationship where the following occur: no concerns reported Const Other: General: Well developed, well nourished, in no acute distress. Appears stated age. Head: Normocephalic, atraumatic. Eyes: Pupils are equal, round and reactive to light and accommodation. Conjunctivae are clear. Vision grossly normal. Ears: TMs clear AU, EACS WNL Nose: Patent, without discharge. Mouth: There are no ulcers or lesions noted. No inflammation, no post nasal drip, no plaques nor exudates. Neck: Supple, no adenopathy or thyromegaly. Lungs: Clear to auscultation bilaterally. No rales, rhonchi or wheeze noted. Good air flow in all dietrich. Heart: Regular rate and rhythm. No murmurs, click, rubs or gallops are noted. Abdomen: Bowel sounds present in all quadrants. The abdomen is soft, nontender, with no masses or organomegaly noted. No hernias are noted. Musculoskeletal: Joints are nontender, without swelling, redness, or effusions. Range of motion is observed to be normal. Pulses: Peripheral pulses are equal and palpable bilaterally. Extremities: No clubbing, cyanosis nor edema is noted. Neurologic: Gait and station normal. Cranial Nerves 2-12 intact. Motor strength grossly symmetrical and intact. No sensory loss. Balance normal. Skin: No rashes, ulcers, or lesions noted. Turgor is good. Skin color is good. Hair and nails are without abnormalities. Psych: Normal eye contact, affect and mood appropriate, and normal interactions. Patient is alert and appropriate to context. Extremities: No clubbing, cyanosis or edema. Assessment and Plan Assessment & Plan (1) Adult general medical exam: Code(s): Z00.00 - Encounter for general adult medical examination without abnormal findings (2) Hypertriglyceridemia: Comment: Not currently on any medications. Can not check a fasting profile as she has not fasting today. Therefore a direct LDL we will be drawn. Code(s): E78.1 - Pure hyperglyceridemia (3) Essential hypertension: Comment: Not currently on any medications. Blood pressure at goal. Code(s): I10 - Essential (primary) hypertension (4) Postmenopausal: Comment: Up-to-date on DEXA. We will check a vitamin-D level today. Code(s): Z78.0 - Asymptomatic menopausal state (5) Pre-diabetes: Comment: We will update labs today to include an A1c. Code(s): R73.03 - Prediabetes (6) GERD (gastroesophageal reflux disease): Comment: Was on omeprazole in the past. However she has no symptoms of guarded at the current time. Code(s): K21.9 - Gastro-esophageal reflux disease without esophagitis Qualifiers: Esophagitis presence: without esophagitis Qualified Code(s): K21.9 - Gastro-esophageal reflux disease without esophagitis (7) Cervical radiculopathy: Comment: Refer to PT for evaluation and treatment. Code(s): M54.12 - Radiculopathy, cervical region (8) Deanne rash of groin: Comment: Rx for nystatin provided. Code(s): B37.89 - Other sites of candidiasis (9) Plantar fasciitis of left foot: Comment: Supportive care to include arch support and home exercises. Code(s): M72.2 - Plantar fascial fibromatosis Orders: Orders IRON PROFILE Today E78.1 - Pure hyperglyceridemia, I10 - Essential (primary) hypertension, R73.03 - Prediabetes, Z78.0 - Asymptomatic menopausal state Microalbumin, Random (w Creat) Today E78.1 - Pure hyperglyceridemia, I10 - Essential (primary) hypertension, R73.03 - Prediabetes, Z78.0 - Asymptomatic menopausal state TSH reflex Free T4 Today E78.1 - Pure hyperglyceridemia, I10 - Essential (primary) hypertension, R73.03 - Prediabetes, Z78.0 - Asymptomatic menopausal state Vitamin D 1,25 dihydroxy Today E78.1 - Pure hyperglyceridemia, I10 - Essential (primary) hypertension, R73.03 - Prediabetes, Z78.0 - Asymptomatic menopausal state PT Evaluation and Treatment Today M54.12 - Radiculopathy, cervical region Hemoglobin A1c Today E78.1 - Pure hyperglyceridemia, I10 - Essential (primary) hypertension, R73.03 - Prediabetes, Z78.0 - Asymptomatic menopausal state LDL Cholesterol Direct Today E78.1 - Pure hyperglyceridemia, I10 - Essential (primary) hypertension, R73.03 - Prediabetes, Z78.0 - Asymptomatic menopausal state Comprehensive Met. Panel Today E78.1 - Pure hyperglyceridemia, I10 - Essential (primary) hypertension, R73.03 - Prediabetes, Z78.0 - Asymptomatic menopausal state Complete Blood Count no Diff Today E78.1 - Pure hyperglyceridemia, I10 - Essential (primary) hypertension, R73.03 - Prediabetes, Z78.0 - Asymptomatic menopausal state Medications: New nystatin apply to affected area 1 appl topical TID 30 grams 0RF 30 days Patient Instructions: Return to office in 1 year for CPE sooner as needed. Look up plantar fasciitis exercises on the internet; get a arch support over the counter to help with you foot pain Try Villanueva gelatin, buy over the counter in the baking section, add to 8 oz of fluid daily to help with joint pain. Health screenings for women You should visit your health care provider from time to time, even if you are healthy. The purpose of these visits is to: Screen for medical issues Assess your risk for future medical problems Encourage a healthy lifestyle Update vaccinations and other preventive care services Help you get to know your provider in case of an illness Information Even if you feel fine, you should still see your provider for regular checkups. These visits can help you avoid problems in the future. For example, the only way to find out if you have high blood pressure is to have it checked regularly. High blood sugar and high cholesterol levels also may not have any symptoms in the early stages. A simple blood test can check for these conditions. There are specific times when you should see your provider or receive specific health screenings. The [place] Preventive Services Task Force publishes a list of recommended screenings. Below are screening guidelines for women ages 18 to 39. BLOOD PRESSURE SCREENING Your blood pressure should be checked at least once every 3 to 5 years if: Your blood pressure is in the normal range (top number less than 120 mm Hg and bottom number less than 80 mm Hg) You don't have risk factors for high blood pressure Ask your provider if you need your blood pressure checked more often if: The top number is 120 to 129 mm Hg or the bottom number is 70 to 79 mm Hg You have diabetes, heart disease, kidney problems, are overweight, or have certain other health conditions You have a first-degree relative with high blood pressure You are Black You had high blood pressure during a If the top number is 130 mm Hg or greater or the bottom number is 80 mm Hg or greater, this is considered stage 1 hypertension. Schedule an appointment with your provider to learn how you can reduce your blood pressure. Watch for blood pressure screenings in your area. Ask your provider if you can stop in to have your blood pressure checked. BREAST CANCER SCREENING Experts do not agree about the benefits of breast self-exams in finding breast cancer or saving lives. Talk to your provider about what is best for you. A screening mammogram is not recommended for most women under age 40. Your provider may discuss and recommend mammograms, MRI scans, or ultrasounds if you have an increased risk for breast cancer, such as: A mother or sister who had breast cancer at a young age (most often starting screening earlier than the age the close relative was diagnosed) You carry a high-risk genetic marker CERVICAL CANCER SCREENING Cervical cancer screening should start at age 21 years unless your provider advises otherwise. After the first test: Women ages 21 through 29 should have a Pap test every 3 years. Exoprts do not agree on whether HPV testing is recommended for this age group. Women ages 30 through 65 should be screened with either a Pap test every 3 years or the HPV test every 5 years or both tests every 5 years (called cotesting ). Women who have been treated for precancer (cervical dysplasia) should continue to have Pap tests for 20 years after treatment or until age 65, whichever is longer. If you have had your uterus and cervix removed (total hysterectomy), and you have not been diagnosed with cervical cancer or precancer (high grade cervical neoplasia), you do not need cervical cancer screening. CHOLESTEROL SCREENING Cholesterol screening should begin at: Age 45 for women with no known risk factors for coronary heart disease Age 20 for women with known risk factors for coronary heart disease Repeat cholesterol screening should take place: Every 5 years for women with normal cholesterol levels More often if changes occur in lifestyle (including weight gain and diet) More often if you have diabetes, heart disease, kidney problems, or certain other conditions DIABETES SCREENING You should be screened for diabetes starting at age 35 and then repeated every 3 years if you have no risk factors for diabetes. Screening may need to start earlier and be repeated more often if you have other risk factors for diabetes, such as: You have a first degree relative with diabetes. You are overweight or have obesity. You have high blood pressure, prediabetes, or a history of heart disease. Screening for diabetes should be done if you are planning to become and you are overweight and have other risk factors such as high blood pressure. DENTAL EXAM Go to the dentist once or twice every year for an exam and cleaning. Your dentist will evaluate if you need more frequent visits. EYE EXAM Have an eye exam every 5 to 10 years before age 40. If you have vision problems, have an eye exam every 2 years or more often if recommended by your provider. You should have an eye exam that includes an examination of your retina (back of your eye) at least every year if you have diabetes. IMMUNIZATIONS Commonly needed vaccines include: Flu shot: get one every year. COVID-19 vaccine: ask your provider what is best for you. Tetanus-diphtheria and acellular pertussis (Tdap) vaccine: have one at or after age 19 as one of your tetanus-diphtheria vaccines if you did not receive it as an adolescent. Tetanus-diphtheria: have a booster (or Tdap) every 10 years. Varicella vaccine: receive 2 doses if you never had chickenpox or the varicella vaccine. Hepatitis B vaccine: receive 2, 3, or 4 doses, depending on your exact circumstances. Measles, mumps, and rubella (MMR) vaccine: receive 1 to 2 doses if you are not already immune to MMR. Your provider can tell you if you are immune. Ask your provider about the human papillomavirus (HPV) vaccine if: You have not received the HPV vaccine in the past You have not completed the full vaccine series (you should catch up on this shot) Ask your provider if you should receive other immunizations if you have certain health problems that increase your risk for some diseases such as pneumonia. INFECTIOUS DISEASE SCREENING Women who are sexually active should be screened for chlamydia and gonorrhea up until age 25. Women 25 years and older should be screened for chlamydia and gonorrhea if at high risk. Screening for hepatitis C: All adults ages 18 to 79 should get a one-time test for hepatitis C. people should be screened at every . Screening for human immunodeficiency virus (HIV): All people ages 15 to 65 should get a one-time test for HIV. Depending on your lifestyle and medical history, you may also need to be screened for infections such as syphilis and HIV, as well as other infections. PHYSICAL EXAM All adults should visit their provider from time to time, even if they are healthy. The purpose of these visits is to: Screen for disease Assess your risk of future medical problems Encourage a healthy lifestyle Update your vaccinations and other preventive care services Maintain a relationship with a provider in case of an illness Your height, weight, and BMI should be checked at every exam. During your exam, your provider may ask you about: Depression and anxiety Diet and exercise Alcohol and tobacco use Safety issues, such as using seat belts, smoke detectors, and intimate partner violence Your medicines and risk for interactions SKIN SELF-EXAM Your provider may check your skin for signs of skin cancer, especially if you're at high risk, such as if you: Have had skin cancer before Have close relatives with skin cancer Have a weakened immune system OTHER SCREENING Talk with your provider about colon cancer screening if you have a strong family history of colon cancer or polyps, or if you have had inflammatory bowel disease or polyps yourself. Routine bone density screening of women under 40 is not recommended. Review Patient declined Pneumococcal Vaccine: 08/29/23 Declined TDap/Td: 08/29/23 Coding Level of Care Code Est Pt Prev Care 40-64y(82858) Diagnoses Adult general medical exam Z00.00 Hypertriglyceridemia E78.1 Essential hypertension I10 Postmenopausal Z78.0 Pre-diabetes R73.03 Gastroesophageal reflux disease without esophagitis K21.9 Esophagitis presence: without esophagitis Cervical radiculopathy M54.12 Deanne rash of groin B37.89 Plantar fasciitis of left foot M72.2 Additional Codes UTE-7 Assessment Billing - UTE-7 Assessment Tool: UTE-7 Assessment [id number] ([id number])
[2023-08-29 11:06] VITALS: BP 122/88; PULSE 83; RESP 14; TEMP 36.8; O2SAT 99; BMI 30.8
== END 2023-08-29 12:22 | disposition home or self-care (01) ==
PROVIDERS: PCP Family Medicine; Visit Provider Nurse Practitioner Family
DX: Z00.00 Encounter for general adult medical examination without abnormal findings (principal); E78.1 Pure hyperglyceridemia; I10 Essential (primary) hypertension; Z78.0 Asymptomatic menopausal state; R73.03 Prediabetes; K21.9 Gastro-esophageal reflux disease without esophagitis; M54.12 Radiculopathy, cervical region; B37.89 Other sites of candidiasis; M72.2 Plantar fascial fibromatosis
CPT/HCPCS: 99396

== ENCOUNTER 2023-08-29 12:28 | Outpatient (REF) | payer OTHER, SELFPAY ==
[2023-08-29 14:38] LABS: Hematocrit 41.9 % (37.0-47.0); Hemoglobin 13.7 g/dl (12.0-16.0); Mean Corpuscular HGB Conc 32.7 g/dl (31.0-35.0); Mean Corpuscular Hemoglobin 29.3 pg (27.0-33.0); Mean Corpuscular Volume 89.5 fL (80.0-98.0); Mean Platelet Volume 10.1 fL (9.4-12.3); Platelet Count 247 X10*3/uL (160-400); Red Blood Count 4.68 X10*6/uL (4.20-5.50); Red Cell Distribution Width 12.8 % (11.0-16.0); White Blood Count 7.3 X10*3/uL (4.8-10.8)
[2023-08-29 14:47] LABS: Estimated Average Glucose 111 mg/dL; Hemoglobin A1c % 5.5 % (<6.0)
[2023-08-29 15:18] LABS: Alanine Aminotransferase 29 U/L (0-31); Albumin Level 4.8 g/dL (3.5-5.0); Alkaline Phosphatase 85 U/L (39-117); Anion Gap 17 (12-20); Aspartate Amino Transferase 24 U/L (5-31); Bilirubin Total 0.5 mg/dL (0.0-1.0); Blood Urea Nitrogen 15 mg/dL (9-16); Calcium 9.7 mg/dL (8.4-10.2); Carbon Dioxide 24 mmol/L (22-29); Chloride 105 mmol/L (96-108); Estimated Glomerular Filt Rate > 60; Glucose Random 100 mg/dL (60-115); Iron 106 mcg/dL (30-160); Percent Iron Saturation 36 % (15-50); Potassium 3.7 mmol/L (3.3-5.1); Sodium 142 mmol/L (135-145); Total Iron Binding Capacity 293 mcg/dL (228-428); Total Protein 8.2 g/dL (6.5-8.0); Unsaturated Iron Binding 187 ug/dL
[2023-08-29 15:28] LABS: Creatinine Urine 38.43 mg/dL; Microalbum/Creatinine Ratio Ur 15.6 ug/mg cr (<30)
[2023-08-29 15:39] LABS: TSH reflex Free T4 3.06 uIU/mL (0.32-4.0)
[2023-08-30 11:53] LABS: LDL Cholesterol Direct 155 mg/dL (<100)
[2023-09-05 15:13] LABS: VITAMIN D (1,25 OH) D3 36 pg/mL; Vit D (1,25-Dihydroxy) Total 36 pg/mL (18-72); Vitamin D (1,25 OH) D2 <8 pg/mL
== END 2023-08-29 12:29 | disposition home or self-care (01) ==
LOC: HO.WFDLDS 12:28
PROVIDERS: Visit Provider Nurse Practitioner Family
DX: E78.1 Pure hyperglyceridemia (principal); R73.03 Prediabetes; I10 Essential (primary) hypertension; Z78.0 Asymptomatic menopausal state
CPT/HCPCS: 36415; 80053; 82043; 82570; 82652; 83036; 83540; 83721; 84443; 85027

== ENCOUNTER 2024-10-01 08:18 | Outpatient (REF) | payer OTHER, SELFPAY | END 2024-10-01 08:19 | disposition home or self-care (01) | LOC: HO.MAMMO 08:18 | PROVIDERS: PCP Nurse Practitioner Family; Visit Provider Nurse Practitioner Family | DX: Z12.31 Encounter for screening mammogram for malignant neoplasm of breast (principal) | CPT/HCPCS: 77063; 77067 ==

== ENCOUNTER → 2024-10-01 08:45 | Outpatient (BNV) | payer OTHER, SELFPAY | PROVIDERS: PCP Nurse Practitioner Family; Visit Provider Internal Medicine | DX: Z12.31 Encounter for screening mammogram for malignant neoplasm of breast (principal) | CPT/HCPCS: 77063; 77067 ==